=== PATIENT | male | born 1940 | race Caucasian/White ===

== ENCOUNTER → 2023-02-16 | Outpatient (CLI) | payer MEDICARE, OTHER | END | disposition home or self-care (01) | LOC: RAH 16:04 | PROVIDERS: ATTEND Family Medicine | DX: S22.42XA Multiple fractures of ribs, left side, initial encounter for closed fracture (principal); R07.81 Pleurodynia; M19.09 Primary osteoarthritis, other specified site; W19.XXXA Unspecified fall, initial encounter; Y93.89 Activity, other specified; Y92.89 Other specified places as the place of occurrence of the external cause; Y99.8 Other external cause status | CPT/HCPCS: 71100 ==

== ENCOUNTER → 2024-05-06 | Outpatient (CLI) | payer MEDICARE, OTHER ==
--- NOTE | 2024-05-06 12:46 | HMCIMG ---
CT ABDOMEN WITHOUT CONTRAST. CT PELVIS WITHOUT CONTRAST. INDICATION: Right flank pain with frequent urination, unspecified hydronephrosis. Chronic kidney disease stage V? TECHNIQUE: Routine transaxial imaging using 5 mm slice thickness through the abdomen and pelvis without the administration of IV contrast. Thin slice reconstructions are also provided. Coronal and sagittal reformatted images acquired for interpretation. CT was performed with one or more of the following dose reduction techniques: Automated exposure control, adjustment of the mA and/or kV according to patient size, or use of iterative reconstruction technique. COMPARISON: None FINDINGS: ON NONCONTRAST IMAGING: ABDOMEN: Heart size is normal. Visible lung bases are clear. 16.0 mm long x 7.6 mm wide ovoid smoothly-marginated calcification occupies the proximal right ureter and contributes to moderate right hydroureteronephrosis. 3 mm long linear calcification within the lower pole calyx of the right kidney. 2 mm nonobstructing calculus within the upper pole calyx of the left kidney. Left ureter appears normal. The liver is normal in size and smooth in contour without biliary duct dilation. The spleen is normal in size and attenuation. The gallbladder appears normal. The pancreas appears normal without pancreatic duct dilation. The adrenal glands appear normal. No significant abdominal, retrocrural or retroperitoneal adenopathy noted. No evidence for intra-abdominal free air or organized fluid collection. Mild calcific plaque is noted along the abdominal aortic and iliac vessel john without aneurysmal dilation. PELVIS: No abnormal calcifications within the urinary bladder or distal ureters. No evidence for free air or organized pelvic fluid collection. No significant pelvic adenopathy detected. Innumerable diverticula along the distal colon and moderate stool burden. Terminal ileum appears unremarkable. The appendix appears normal. Mild thoracolumbar spondylosis. IMPRESSION: 1. 16.0 mm long x 7.6 mm wide ovoid smoothly-marginated nonobstructing calculus within the proximal right ureter and secondary moderate right hydroureteronephrosis. 2. 3 mm long linear nonobstructing calculus within the lower pole calyx of the right kidney, and 2 mm nonobstructing calculus within the upper pole calyx of the left kidney. 3. Distal colonic diverticulosis and moderate stool burden.
== END | disposition home or self-care (01) ==
LOC: RAH 10:30
PROVIDERS: ATTEND Family Medicine
DX: K57.30 Diverticulosis of large intestine without perforation or abscess without bleeding (principal); N13.2 Hydronephrosis with renal and ureteral calculous obstruction; N18.5 Chronic kidney disease, stage 5; M47.815 Spondylosis without myelopathy or radiculopathy, thoracolumbar region; I70.0 Atherosclerosis of aorta
CPT/HCPCS: 74176

== ENCOUNTER → 2024-08-04 | Outpatient (CLI) | payer MEDICARE, OTHER ==
--- NOTE | 2024-08-04 13:24 | HMCIMG ---
CT ABDOMEN PELVIS WITHOUT CONTRAST Clinical Information: CKD Comparison: CT Dose Index (CTDI): 28.40 mGy Dose Length Product (DLP): 1536.00 total mGy-cm PROTOCOL: Routine noncontrast helical scanning of the abdomen and pelvis was performed at 5mm collimation. Findings: There is a Right ureteropelvic junction calculus measuring 13 mm causing [id number] hydroureteronephrosis. Second distal right ureter calculus is seen measuring 6 mm, also causing dilatation of the entire ureter. Both kidneys show atrophy as well. The lung bases are clear. The stomach is unremarkable. It shows no wall thickening. No gross ulceration is seen. It is not overly distended. There are no surrounding inflammatory changes. No wall lesions are identified to suggest cancer. The spleen is unremarkable. It is not enlarged. The pancreas shows normal anatomy. It is not fatty replaced. It shows no lesions. The pancreatic duct is not dilated. The gallbladder is unremarkable. It shows no cholelithiasis. The gallbladder wall is normal in thickness. There is no pericholecystic fluid. The is no acute or chronic inflammation noted. The adrenal glands are unremarkable. There is no enlargement. No lesions are noted. The liver is unremarkable. It shows no focal masses. The appendix is unremarkable. It shows no evidence of inflammation. No appendicolith is seen. The small bowel is unremarkable. There is no evidence of dilatation to suggest obstruction. No evidence of adynamic ileus is seen. There is no small bowel wall thickening to suggest enteritis. There is diverticulosis. There is no evidence of acute inflammation to suggest diverticulitis. The colon is otherwise unremarkable. Urinary bladder shows tiny intrarenal calculi around the opening of the right distal ureter. The other pelvic structures are unremarkable. The bony and vascular structures are unremarkable for the patient's age. IMPRESSION: Urinary tract calculi causing obstruction. Diverticulosis. No acute inflammation. Normal appendix. This study was performed using dose reduction techniques to include automated exposure control and/or adjustment of the mA and/or kV according to patient size.
--- NOTE | 2024-08-04 13:28 | NUR ---
PT RECOMENDED TO GO TO [facility] PER DR. SOLITARIO, PT REFUSED, CHOSE TO F/U WITH HEALTH AND SAFETY ADVISOR
== END | disposition home or self-care (01) ==
LOC: RAH 12:43
PROVIDERS: ATTEND Internal Medicine Nephrology
DX: N20.0 Calculus of kidney (principal); K57.90 Diverticulosis of intestine, part unspecified, without perforation or abscess without bleeding; N28.82 Megaloureter; N18.30 Chronic kidney disease, stage 3 unspecified
CPT/HCPCS: 74176